=== PATIENT | male | born 1995 | race Two or more races ===

== ENCOUNTER 2022-02-06 12:44 | Emergency (ER) | payer SELFPAY ==
[~2022-02-06] VITALS: Ht 162.6 cm; Wt 66.4 kg
[2022-02-06 12:52] VITALS: BP 155/94
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
[2022-02-06] MEDS ORDERED: CEPHALEXIN 250 MG CAPSULE. PO SCH (13:45)
[2022-02-06] MEDS ORDERED: DIPHTH,PERTUSS(ACELL),TET TOX 0.5 ML DISP.SYRIN. VAX IM ONE (13:45)
[2022-02-06] MEDS ORDERED: silver sulfADIAZINE 1% CREAM 25GM TUBE. TP ONE (13:45)
[2022-02-06] MEDS ORDERED: HYDROcodone/APAP 5/325MG 1 TAB TABLET PO ONE (13:45)
[2022-02-06] MEDS ORDERED: CEPH500C PO (14:27)
[2022-02-06] MEDS ORDERED: HYDR-2759 PO (14:27)
[2022-02-06] MEDS ORDERED: IBUP-1060 PO (14:27)
== END 2022-02-06 14:37 | disposition home or self-care (01) ==
LOC: ER 12:44
DX: T22.20XA Burn of second degree of shoulder and upper limb, except wrist and hand, unspecified site, initial encounter (principal); X08.8XXA Exposure to other specified smoke, fire and flames, initial encounter; Y93.89 Activity, other specified; Y92.89 Other specified places as the place of occurrence of the external cause; Y99.8 Other external cause status
CPT/HCPCS: 16020; 90471; 90715; 99284